=== PATIENT | female | born 1985 | race Caucasian/White ===

== ENCOUNTER → 2018-01-26 | Outpatient (REF) ==
--- NOTE | 2018-01-26 11:38 | Diagnostic Imaging Report ---
INDICATION: Right foot pain. TIME OF EXAM: 11:51 AM FINDINGS: Three views of the right foot were obtained. Metatarsals are intact. The phalanges appear intact. Midfoot and hindfoot are unremarkable. No fractures are seen. IMPRESSION: No acute bony abnormality is detected. Dictated by: Dictated on workstation # [id number]
--- NOTE | 2018-01-26 11:39 | Diagnostic Imaging Report ---
INDICATION: Right knee pain. TIME OF EXAM: 11:49 AM FINDINGS: Three views of the right knee demonstrate normal alignment. The joint spaces are well maintained. The articular surfaces are smooth. No fracture, dislocation or effusion is seen. IMPRESSION: No acute bony abnormality is detected. Dictated by: Dictated on workstation # [id number]
--- NOTE | 2018-01-26 11:39 | Diagnostic Imaging Report ---
INDICATION: Right ankle pain. TIME OF EXAM: 11:50 AM FINDINGS: 3 views right ankle demonstrate normal alignment. Ankle mortise is well maintained. Talar dome is smooth. No fracture or dislocation is seen. IMPRESSION: No acute bony abnormality is detected. Dictated by: Dictated on workstation # [id number]
== END | disposition home or self-care (01) ==
LOC: OCC 10:56
PROVIDERS: ATTEND Family Medicine
CPT/HCPCS: 73562; 73610; 73630